=== PATIENT | female | born 1960 | race Caucasian/White ===

== ENCOUNTER 2017-04-29 11:27 | Inpatient (IN) | payer OTHER ==
[~2017-04-29] VITALS: Ht 160 cm; Wt 112.4 kg
--- NOTE | ~2017-04-29 | 2DMMODE ---
[facility] [address] [facility] [place] [address] 2 D/M-MODE ECHOCARDIOGRAM Name: BENITA LUU Room #: 453-P ADM IN M.R.#: [id number] Admission: 04/29/17 Attend Phys: Love Mcmanus Discharge: Date of : 60 Date of Service: 04/29/17 1530 Report #: [id number] THIS REPORT FOR: //name// APPROVED REPORT Study performed: 04/29/2017 14:44:01 EXAM: Comprehensive 2D, Doppler, and color-flow Echocardiogram Patient Location: Echo lab Room #: [facility] Status: routine Other Information Study Quality: Adequate/Low parasternal window. Indications Syncope. Hx: CVA 2016, HTN, HLP, DM, morbid obesity. 2D Dimensions RVDd: 24.96 mm LVEF(%): 50.91 (>50%) IVSd: 11.63 (7-11mm) LVOT Diam: 21.32 (18-24mm) LVDd: 43.26 mm PWd: 9.59 (7-11mm) LVDs: 32.13 (25-40mm) Aortic Root: 33.73 mm Lawrence's LVEF: 50.91 % Volumes Left Atrial Volume (Systole) Single Plane 4CH: 36.04 mL Single Plane 2CH: 56.98 mL LA ESV Index: 24.00 mL/m2 Aortic Valve AoV Peak Mamadou.: 1.27 m/s AO Peak Gr.: 6.45 mmHg LVOT Max P.39 mmHg LVOT Max V: 0.92 m/s JACQUELINE Vmax: 2.59 cm2 Mitral Valve E/A Ratio: 0.6 MV Decel. Time: 157.96 ms MV E Max Mamadou.: 0.54 m/s MV A Mamadou.: 0.97 m/s MV PHT: 45.81 ms IVRT: 89.97 ms [facility] [employer] [place] [address] 2 D/M-MODE ECHOCARDIOGRAM Name: BENITA LUU Room #: 453-P [facility] IN .R.#: [id number] Admission: 04/29/17 Attend Phys: Love Mcmanus Discharge: Date of : 60 Date of Service: 04/29/17 1530 Report #: [id number] Pulmonary Valve PV Peak Mamadou.: 0.93 m/s PV Peak Gr.: 3.48 mmHg Pulmonary Vein P Vein S: 0.61 m/s P Vein D: 0.27 m/s P Vein S/D Ratio: 2.26 Tricuspid Valve TR Peak Mamadou.: 2.36 m/s RAP Estimate: 5.00 mmHg TR Peak Gr.: 22.33 mmHg PA Pressure: 27.00 mmHg Left Ventricle The left ventricle is normal size. There is normal left ventricular wall thickness. Left ventricular systolic function is normal. LVEF is 55%. Mild diastolic dysfunction is present (impaired relaxation pattern). Right Ventricle The right ventricle is normal size. The right ventricular systolic function is normal. Atria The left atrium size is normal. The right atrium size is normal. Aortic Valve The aortic valve is normal in structure. No aortic regurgitation is present. There is no aortic valvular stenosis. Mitral Valve The mitral valve is normal in structure. Mild mitral regurgitation. No evidence of mitral valve stenosis. Tricuspid Valve The tricuspid valve is normal in structure. There is trace tricuspid regurgitation. The right atrial pressure is estimated at 5 mmHg. Estimated PAP is 27mmHg. Pulmonic Valve Trace pulmonic regurgitation. Great Vessels The aortic root is normal in size. IVC is normal in size and [address] [address] 2 D/M-MODE ECHOCARDIOGRAM Name: BENITA LUU Room #: 453-P [facility] IN M.R.#: [id number] Admission: 04/29/17 Attend Phys: Love Mcmanus Discharge: Date of : 60 Date of Service: 04/29/17 1530 Report #: [id number] collapses >50% with inspiration. Pericardium There is no pericardial effusion. <Conclusion> The left ventricle is normal size. LVEF is 55%. The aortic valve is normal in structure. The mitral valve is normal in structure. Mild mitral regurgitation. The tricuspid valve is normal in structure. There is trace tricuspid regurgitation. The right atrial pressure is estimated at 5 mmHg. Estimated PAP is 27mmHg. Trace pulmonic regurgitation. <ELECTRONICALLY SIGNED> By: Job Ledezma MD 04/29/17 1530 1530 153 Job Ledezma MD /INF
--- NOTE | ~2017-04-29 | D ---
[facility] [address] [place] [address] DISCHARGE SUMMARY Name: BENITA LUU Room #: 453-P [facility] IN M.R.#: [id number] Admission: 04/29/17 Attend Phys: Love Mcmanus MD Discharge: 04/30/17 Date of : 60 Report #: [id number] THIS REPORT FOR: //name// CC: LOIDA physician/PCP Love Mcmanus DATE OF SERVICE: 04/30/2017 DATE OF ADMISSION: 04/29/2017. DATE OF DISCHARGE: 04/30/2017. HISTORY OF PRESENT ILLNESS: The patient is a 56-year-old female who came to the hospital with dizziness. Please refer to admission H and P for details. In brief, given the patient's previous history of stroke in 2016, the patient was admitted from the clinic and stroke workup was initiated. HOSPITALIZATION COURSE: The patient was hospitalized at [facility]. The patient had dizziness that worsened over the last few days and she reported spinning of the room. She did not have any focal deficits on examination. Neurologist continued to follow the patient. The patient had MRI and MRA of the brain as well as cardiac echo, all unremarkable. She also had EEG that shows no evidence of seizure. The patient's symptoms most likely were attributed to benign positioning vertigo. Her condition remained stable. No arrhythmias were detected on telemetry. The patient responded well to meclizine and symptoms today are much better. Currently, the patient's condition is acceptable, as documented in the patient's chart. DISCHARGE DIAGNOSES: 1. Vertigo, most likely related to benign positional vertigo. Symptomatically much better. 2. Negative stroke workup, as detailed above. SECONDARY DIAGNOSES: 1. History of stroke, presented with aphasia in July of 2016, status post TPA. No evidence of stroke on MRI of the brain at that time after TPA. 2. Diabetes mellitus type 2, out of control. Hemoglobin A1c 7.7%. 3. Dyslipidemia. 4. Fatty liver. 5. Morbid obesity. 6. Borderline low vitamin D. Advised to discuss with the primary care physician. [facility] [address] [place] [address] DISCHARGE SUMMARY Name: MELISSA LUUNA Room #: 453-P [facility] IN M.R.#: [id number] Admission: 04/29/17 Attend Phys: Love Mcmanus MD Discharge: 04/30/17 Date of : 60 Report #: [id number] DISCHARGE MEDICATIONS: Please refer to the medication reconciliation list. FOLLOWUP PLAN: 1. Follow up with a neurologist in 1 month. 2. Follow up with the primary care physician as advised. <ELECTRONICALLY SIGNED> By: Love Mcmanus MD 05/01/17 1807 1428 1539 Love Mcmanus MD /nt
--- NOTE | ~2017-04-29 | H ---
[facility] [place] [address] HISTORY AND PHYSICAL Name: BENITA LUU Room #: 453-P [facility] IN M.R.#: [id number] Admission: 04/29/17 Attend Phys: Love Mcmanus MD Discharge: 04/30/17 Date of : 60 Report #: [id number] THIS REPORT FOR: //name// CC: LOIDA physician/PCP Love Mcmanus DATE OF SERVICE: 04/29/2017 CHIEF COMPLAINT: Dizziness. HISTORY OF PRESENT ILLNESS: The patient is a 56-year-old female with multiple medical problems, who was admitted here in July 2016, for stroke. The patient received TPA, and reportedly, when she was discharged, she was asymptomatic. The patient is a poor historian, and she cannot give me much of the history. The patient states that she has had on and off dizziness, and bilateral extremity weakness on and off last 6 months. Last 2 months or so, the patient reports worsening in her dizziness. She reports room spinning. She was seen at the outside hospital and she was offered to be admitted, but she refused. Today, she visited her neurologist's office, and based on symptoms, the patient was directly admitted here. So far, the patient has been hemodynamically stable and afebrile. Blood work is pending. Cardiac echo was done, that is unremarkable. PAST MEDICAL HISTORY: 1. CVA in July 2016, status post TPA, with unremarkable workup, negative MRI, and reportedly no residual symptoms. 2. Diabetes mellitus type 2, chronically out of control. 3. Hypertension. 4. Dyslipidemia. 5. Fatty Liver. 6. Morbid obesity. HOME MEDICATIONS: Reviewed and documented in the patient's chart. FAMILY HISTORY: Reviewed and not pertinent to the patient's current condition. SOCIAL HISTORY: The patient lives with her roommate. She is on disability secondary to chronic back and neck pain. She does not smoke cigarettes and does not drink alcohol. REVIEW OF SYSTEMS: As above in HPI section, all others negative. PHYSICAL EXAMINATION: [facility] [address] [place] [address] HISTORY AND PHYSICAL Name: BENITA LUU Room #: 453-[facility] IN ..#: [id number] Admission: 04/29/17 Attend Phys: Love Mcmanus MD Discharge: 04/30/17 Date of : 60 Report #: [id number] GENERAL: The patient is a middle-aged female who is in no apparent distress. VITAL SIGNS: Blood pressure is 133/89, heart rate is 90, respiration is 16, and temperature is 97.6. HEENT: Pupils are equal. Eye movements are normal. Sclerae are anicteric. NECK: Supple. The patient has no JVD. Carotid bruits are not appreciated. RESPIRATORY: Chest moves symmetrically with breathing. LUNGS: Clear to auscultation bilaterally. CARDIOVASCULAR: The patient has regular rhythm and rate. She has no murmurs, gallops, or rubs. GASTROINTESTINAL: Abdomen is soft, nondistended and nontender. Bowel sounds are present. Hepatomegaly or splenomegaly is not palpated. MUSCULOSKELETAL: There is no edema, cyanosis, or clubbing. Range of motion is normal. NEUROLOGIC: The patient is alert and oriented x3. Her examination is nonfocal. SKIN: The patient has no skin lesions. LABS: Pending. Imaging studies showed normal cardiac echo. Ejection fraction is normal. MRI of the brain is pending. Carotid Doppler is pending. ASSESSMENT AND PLAN: 1. Dizziness, and vertigo, no focal findings. 2. History of stroke in July 2016, as detailed above. Neurologist is consulted. The patient is undergoing stroke workup. Consultation is very much appreciated. 3. Diabetes mellitus type 2, chronically out of control, hemoglobin A1c is ordered. Metformin will be continued. The patient will be treated with sliding scale insulin while she is here. 4. Hypertension. Acceptable control. 5. Morbid obesity. 6. Deep venous thrombosis prophylaxis. SCDs. <ELECTRONICALLY SIGNED> By: Love Mcmanus MD 05/01/17 1807 1610 1650 Love Mcmanus MD /nt
--- NOTE | ~2017-04-29 | EEG ---
[facility] [place] [address] ELECTROENCEPHALOGRAM Name: BENITA LUU Room #: 453-P [facility] IN M.R.#: [id number] Admission: 04/29/17 Attend Phys: Earle Willoughby Discharge: 04/30/17 Date of : 60 Report #: [id number] THIS REPORT FOR: //name// CC: LOIDA physician/PCP Love Mcmanus DATE OF SERVICE: 04/30/2017 This patient is being evaluated for syncope. EEG is being done to evaluate the possibility of seizure. EEG was done by placing the electrodes by standard 10-20 system of electrode placement. Both referential and sequential montages were used for recording. Background activity in this patient's EEG is about 11 Hz and 40 microvolts. The patient became drowsy and that is associated with bilateral slowing and a few vertex sharp waves well as sleep spindles, which were symmetrical. Photic stimulation is unremarkable. Throughout the record, no active epileptiform activity was noticed. IMPRESSION: This patient's EEG is within normal limits. Thank you very much for this referral. By: [id number] Cornel Velasco MD /nt
[~2017-04-29 11:27] MED LIST: ASPIRIN EC325 M1 PO; CELECOXIB100 MG PO; CYMBALTA60 MG PO; DIFLUCAN200 MG PO; FLEXERIL PO; HYDROCHLOROTHIA25 M2 PO; HYDROCODON-ACE1 EAC5 PO; LIPITOR 20 MG T20 M1 PO; LISINOPRIL5 MG PO; LYRICA150 MG PO; METFORMIN HCL500 MG PO; NORCO 10-325 T1 EACH PO; OMEPRAZOLE20 M2 PO; PROAIR HFA8.5 GM INH; WELLBUTRIN SR150 M1 PO; XANAX 0.5 MG0.5 MG PO
[2017-04-29 12:15] VITALS: BP 133/89
[2017-04-29] MEDS ORDERED: PAXIL10 MG PO (13:23)
[2017-04-29] MEDS ORDERED: PLAVIX 75 MG TA75 M1 PO (13:24)
[2017-04-29] MEDS ORDERED: TRAZODONE HCL100 MG PO (13:25)
[2017-04-29] MEDS ORDERED: ANTIVERT25 MG PO (13:27)
[2017-04-29] MEDS ORDERED: CELECOXIB100 MG PO (13:41)
[2017-04-29 17:46] VITALS: BP 153/95
[2017-04-29 19:02] LABS: ABSOLUTE NEUTROPHILS 4.3 thou/uL (1.4-8.2); BASOPHILS 0.7 % (0.0-2.0); EOSINOPHILS 2.1 % (0.0-3.0); HEMATOCRIT 41.5 % (37.0-47.0); HEMOGLOBIN 13.8 gm/dL (12.0-15.0); LYMPHOCYTES 34.4 % (24.0-44.0); MCH 28.5 pg (26.0-34.0); MCHC 33.3 g/dL (28.0-37.0); MCV 85.7 fL (80.0-100.0); MONOCYTES 4.5 % (1.0-8.0); PLATELET COUNT 275 thou/uL (150-400); POLYS 58.3 % (36.0-66.0); RBC 4.85 mil/uL (4.20-5.00); RDW 14.2 % (10.5-14.5); WBC 7.4 thou/uL (4.0-11.0)
[2017-04-29 19:03] LABS: MANUAL DIFF NO
[2017-04-29 19:18] VITALS: BP 134/88
[2017-04-29 19:18] LABS: ALBUMIN 3.9 g/dL (3.4-5.0); CALCIUM 9.7 mg/dL (8.5-10.1); CREATININE 0.7 mg/dL (0.6-1.0); POTASSIUM 3.6 mmol/L (3.5-5.1); TOTAL BILIRUBIN 0.6 mg/dL (<0.1-1.0); TOTAL PROTEIN 7.8 g/dL (6.4-8.2)
[2017-04-29 19:20] LABS: CHOLESTEROL 150 mg/dL (<200); HDL CHOLESTEROL 32 mg/dL (>40); LDL CHOLESTEROL 88 mg/dL (<100); TC:HDL 4.7 Ratio (Not establshd); TRIGLYCERIDE 153 mg/dL (<150); VLDL 31 mg/dL (<40)
[2017-04-29 19:48] LABS: FOLIC ACID 10.4 ng/mL (8.6-58.9); TSH 1.028 uIU/mL (0.358-3.740)
[2017-04-30] VITALS: BP 141/85
[2017-04-30 03:09] LABS: FREE T4 0.97 ng/dL (0.82-1.77)
[2017-04-30 05:12] LABS: GLYCOHEMOGLOBIN (HGB A1C) 7.7 % (4.8-5.6)
[2017-04-30 07:57] VITALS: BP 135/95
[2017-04-30] MEDS ORDERED: ANTIVERT25 MG PO (14:30)
[2017-04-30 14:42] VITALS: BP 135/95
[2017-04-30 23:08] LABS: DIL. RUSSELL VIPER VENOM 40.7 sec (0.0-47.0)
[2017-05-01 04:10] LABS: PROTEIN C ANTIGEN* 128 % (60-150)
[2017-05-02 14:08] LABS: ALPHA TOCOPHEROL 7.3 mg/L (5.3-16.8)
== END 2017-04-30 15:40 | disposition home or self-care (01) | DRG 149 ==
LOC: 4W 11:27
PROVIDERS: Internal Medicine Endocrinology, Diabetes & Metabolism; Psychiatry & Neurology Neurology
DX: H81.10 Benign paroxysmal vertigo, unspecified ear (principal); Z68.41 Body mass index [BMI] 40.0-44.9, adult; H81.90 Unspecified disorder of vestibular function, unspecified ear; E66.01 Morbid (severe) obesity due to excess calories; F41.9 Anxiety disorder, unspecified; I10 Essential (primary) hypertension; E78.5 Hyperlipidemia, unspecified; E11.9 Type 2 diabetes mellitus without complications; K76.0 Fatty (change of) liver, not elsewhere classified; Z88.8 Allergy status to other drugs, medicaments and biological substances; Z79.899 Other long term (current) drug therapy; Z86.73 Personal history of transient ischemic attack (TIA), and cerebral infarction without residual deficits
CPT/HCPCS: 10045